=== PATIENT | male | born 1965 | race Caucasian/White ===

== ENCOUNTER → 2017-04-23 | Outpatient (CLI) | payer OTHER ==
[~2017-04-23] VITALS: Ht 170.2 cm; Wt 97.5 kg
[~2017-04-23] MED LIST: MULTCHW13 PO; NS 1,000 ML IV ONE
--- NOTE | 2017-04-23 12:46 | ROOR ---
Patient Name: Garry Grimes Procedure Date: 04/23/2017 12:14 PM Date of : 1965 Age: 51 Room: [facility] Gender: Male Note Status: Finalized Procedure: Total Colonoscopy to Cecum + Biopsy Polypectomy Indications: Screening for colorectal malignant neoplasm Providers: Uri Lopez MD Referring MD: ADRIAN Atwood Requesting Provider: Medicines: Monitored Anesthesia Care Complications: No immediate complications. Procedure: Pre-Anesthesia Assessment: - The heart rate, respiratory rate, oxygen saturations, blood pressure, adequacy of pulmonary ventilation, and response to care were monitored throughout the procedure. The Colonoscope was introduced through the anus and advanced to the cecum, identified by appendiceal orifice and ileocecal valve. The colonoscopy was performed without difficulty. The patient tolerated the procedure well. The quality of the bowel preparation was good. Findings: The perianal and digital rectal examinations were normal. Non-bleeding internal hemorrhoids were found during retroflexion. The hemorrhoids were small and Grade I (internal hemorrhoids that do not prolapse). Multiple small and large-mouthed diverticula were found in the recto-sigmoid colon, sigmoid colon and descending colon. Two sessile polyps were found in the mid ascending colon. The polyps were small in size. These polyps were removed with a jumbo cold forceps. Resection and retrieval were complete. A small polyp was found at 30 cm proximal to the anus. The polyp was sessile. The polyp was removed with a jumbo cold forceps. Resection and retrieval were complete. The exam was otherwise without abnormality on direct and retroflexion views. Impression: - Non-bleeding internal hemorrhoids. - Diverticulosis in the recto-sigmoid colon, in the sigmoid colon and in the descending colon. - Two small polyps in the mid ascending colon, removed with a jumbo cold forceps. Resected and retrieved. - One small polyp at 30 cm proximal to the anus, removed with a jumbo cold forceps. Resected and retrieved. - The examination was otherwise normal on direct and retroflexion views. - The exam was otherwise normal to the cecum. Recommendation: - Patient has a contact number available for emergencies. The signs and symptoms of potential delayed complications were discussed with the patient. Return to normal activities tomorrow. Written discharge instructions were provided to the patient. - High fiber diet. - Discharge patient to home. - Continue present medications. - Await pathology results. - Telephone GI clinic for pathology results in 1 week. - Repeat colonoscopy in 5 years for surveillance based on pathology results. - Return to referring physician. - The findings and recommendations were discussed with the patient's family. Uri Lopez MD Uri Lopez MD 04/23/2017 12:46:21 PM This report has been signed electronically. Number of Addenda: 0 Note Initiated On: 04/23/2017 12:14 PM Estimated Blood Loss: Estimated blood loss: none.
[2017-04-23 13:10] VITALS: BP 121/90
== END ==
LOC: M OPP 11:20
PROVIDERS: ATTEND Internal Medicine Gastroenterology
DX: Z12.11 Encounter for screening for malignant neoplasm of colon (principal); D12.2 Benign neoplasm of ascending colon; K64.0 First degree hemorrhoids; K57.30 Diverticulosis of large intestine without perforation or abscess without bleeding; Z87.891 Personal history of nicotine dependence; Z79.899 Other long term (current) drug therapy; Z88.5 Allergy status to narcotic agent

== ENCOUNTER 2023-01-06 10:35 | Emergency (ER) | payer OTHER ==
[~2023-01-06] VITALS: Ht 170.2 cm; Wt 95.5 kg
[~2023-01-06 10:35] MED LIST changes: -MULTCHW13 PO; +MULTCHW14 PO; -NS 1,000 ML IV ONE
[2023-01-06 11:25] LABS: BASO # 0.1 10^3/uL (0.0-0.2); BASO % 0.6 % (0.0-1.0); EOS # 0.3 10^3/uL (0.0-0.5); EOS % 2.5 % (0.0-3.0); HEMATOCRIT 52.3 % (42.0-52.0); HEMOGLOBIN 17.1 g/dl (13.5-17.5); LYMPH # 3.7 10^3/uL (1.5-5.0); LYMPH % 34.2 % (24.0-44.0); MEAN CORPUSCULAR HEMOGLOBIN 29.9 pg (27.0-33.0); MEAN CORPUSCULAR HGB CONC 32.7 g/dl (32.0-36.5); MEAN CORPUSCULAR VOLUME 91.6 fl (80.0-96.0); MONO # 0.8 10^3/uL (0.0-0.8); MONO % 7.7 % (2.0-8.0); NEUTROPHILS # 5.8 10^3/uL (1.5-8.5); NEUTROPHILS % 54.2 % (36.0-66.0); PLATELET COUNT, AUTOMATED 259 10^3/uL (150-450); RED BLOOD COUNT 5.71 10^6/uL (4.30-6.10); WHITE BLOOD COUNT 10.7 10^3/uL (4.0-10.0)
[2023-01-06] MEDS ORDERED: METOPROLOL 5 MG/5 ML VIAL IV SCH (11:30)
[2023-01-06] MEDS ORDERED: METOPROLOL TART 50 MG TAB PO ONE (11:30)
[2023-01-06 11:38] LABS: INR 0.92; PROTHROMBIN TIME 12.6 SECONDS (12.5-14.5)
[2023-01-06 11:39] LABS: PARTIAL THROMBOPLASTIN TIME 30.1 SECONDS (24.8-34.2)
[2023-01-06 11:54] LABS: CK-MB VALUE MASS 3.8 NG/ML (<3.6); LIPASE 28 U/L (12-53)
[2023-01-06 11:56] LABS: ALBUMIN 3.8 G/DL (3.2-5.2); ALKALINE PHOSPHATASE 61 U/L (46-116); ALT/SGPT 59 U/L (7.0-40); AST/SGOT 31 U/L (<34); BILIRUBIN,DIRECT 0.2 MG/DL (<0.4); BILIRUBIN,TOTAL 0.7 MG/DL (0.3-1.2); BLOOD UREA NITROGEN 30 MG/DL (9-23); CALCIUM LEVEL 11.3 MG/DL (8.5-10.1); CARBON DIOXIDE LEVEL 25 MMOL/L (20-31); CHLORIDE LEVEL 109 MMOL/L (98-107); CREATININE FOR GFR 1.11 MG/DL (0.70-1.30); GLOMERULAR FILTRATION RATE > 60.0 (>56); GLUCOSE, FASTING 112 MG/DL (60-100); SODIUM LEVEL 141 MMOL/L (136-145); TOTAL PROTEIN 6.9 G/DL (5.7-8.2)
[2023-01-06 11:58] LABS: FREE T4 0.78 NG/DL (0.89-1.76)
[2023-01-06 11:59] LABS: THYROID STIMULATING HORMONE 1.551 uIU/ML (0.55-4.78)
[2023-01-06 12:00] VITALS: BP 120/63
[2023-01-06 12:15] LABS: CPK CREATINE PHOSPHOKINASE 144 U/L (46-171); MB/CK RELATIVE INDEX 2.63 (< OR =4)
[2023-01-06 12:58] LABS: CK-MB VALUE MASS 3.5 NG/ML (<3.6)
[2023-01-06 12:59] LABS: MB/CK RELATIVE INDEX 2.82 (< OR =4)
[2023-01-06] MEDS ORDERED: DIGOXIN INJ 0.5 MG/2 ML AMP IV ONE (13:25)
[2023-01-06 16:00] VITALS: BP 115/78
[2023-01-06] MEDS ORDERED: APIXABAN 5 MG TAB (ELIQUIS) PO ONE (17:00)
[2023-01-06] MEDS ORDERED: METO50TA7 PO (17:03)
[2023-01-06] MEDS ORDERED: ELIQ5TAB PO (17:03)
[2023-01-06] MEDS ORDERED: DIGO0.253 PO (17:03)
[2023-01-06] MEDS ORDERED: LISI20TA33 PO (17:08)
[2023-01-06] MEDS ORDERED: LISI10TA22 PO (17:12)
== END 2023-01-06 17:28 | disposition home or self-care (01) ==
LOC: M ED 10:35
DX: I48.91 Unspecified atrial fibrillation (principal); I10 Essential (primary) hypertension; E78.5 Hyperlipidemia, unspecified
CPT/HCPCS: 36415; 71045; 80048; 80076; 82550; 82553; 83690; 84439; 84443; 84484; 85025; 85610; 85730; 93005; 93041; 94760; 99285; J1160

== ENCOUNTER 2024-05-29 10:54 | Inpatient (IN) | payer OTHER ==
[~2024-05-29] VITALS: Ht 170.2 cm; Wt 94.9 kg
[~2024-05-29 10:54] MED LIST changes: +DIGO0.253 PO; +ELIQ5TAB PO; +LISI10TA22 PO; +LISI20TA33 PO; +METO50TA7 PO
[2024-05-29 12:19] LABS: BASO % 0.4 % (0.0-1.0); EOS # 0.3 10^3/uL (0.0-0.5); EOS % 2.7 % (0.0-3.0); HEMATOCRIT 48.1 % (42.0-52.0); HEMOGLOBIN 16.2 g/dl (13.5-17.5); LYMPH # 2.6 10^3/uL (1.5-5.0); LYMPH % 27.2 % (24.0-44.0); MEAN CORPUSCULAR HEMOGLOBIN 31.3 pg (27.0-33.0); MEAN CORPUSCULAR HGB CONC 33.7 g/dl (32.0-36.5); MEAN CORPUSCULAR VOLUME 92.9 fl (80.0-96.0); MONO # 0.9 10^3/uL (0.0-0.8); MONO % 9.4 % (2.0-8.0); NEUTROPHILS # 5.8 10^3/uL (1.5-8.5); NEUTROPHILS % 59.9 % (36.0-66.0); PLATELET COUNT, AUTOMATED 230 10^3/uL (150-450); RED BLOOD COUNT 5.18 10^6/uL (4.30-6.10); WHITE BLOOD COUNT 9.7 10^3/uL (4.0-10.0)
[2024-05-29 12:32] LABS: INR 1.11; PARTIAL THROMBOPLASTIN TIME 33.6 SECONDS (24.8-34.2)
[2024-05-29 12:39] LABS: LIPASE 34 U/L (12-53)
[2024-05-29 12:41] LABS: ALBUMIN 3.9 G/DL (3.2-5.2); ALKALINE PHOSPHATASE 65 U/L (46-116); ALT/SGPT 45 U/L (7.0-40); AMYLASE 29 U/L (30-118); AST/SGOT 18 U/L (<34); BILIRUBIN,DIRECT 0.2 MG/DL (<0.4); BILIRUBIN,TOTAL 0.9 MG/DL (0.3-1.2); BLOOD UREA NITROGEN 24 MG/DL (9-23); CALCIUM LEVEL 11.3 MG/DL (8.5-10.1); CARBON DIOXIDE LEVEL 29 MMOL/L (20-31); CHLORIDE LEVEL 107 MMOL/L (98-107); CREATININE FOR GFR 0.95 MG/DL (0.70-1.30); GLOMERULAR FILTRATION RATE > 60.0 (>56); GLUCOSE, FASTING 127 MG/DL (60-100); POTASSIUM SERUM 5.5 MMOL/L (3.5-5.1); SODIUM LEVEL 138 MMOL/L (136-145); TOTAL PROTEIN 6.9 G/DL (5.7-8.2)
[2024-05-29] MEDS ORDERED: ISOVUE-370 76% 100ML VIAL As Ordered ONE (12:47)
[2024-05-29] MEDS: PIPERACILLIN/TAZOBACTAM SOD 3.375 GM in D5W MINI-BAG PLUS 50 ML IV ONE (14:28)
[2024-05-29] MEDS ORDERED: DIGO0.253 PO (14:43)
[2024-05-29] MEDS ORDERED: AMLO1TAB24 PO (14:43)
[2024-05-29] MEDS ORDERED: METO1TAB7 PO (14:43)
[2024-05-29] MEDS ORDERED: METF-838 PO (14:43)
[2024-05-29] MEDS ORDERED: NITR0.4S14 PO (14:43)
[2024-05-29] MEDS ORDERED: ELIQ5TAB PO (14:43)
[2024-05-29] MEDS ORDERED: ASPI81TA26 PO (14:43)
[2024-05-29] MEDS ORDERED: FEXO-116 PO (14:43)
[2024-05-29] MEDS ORDERED: METO1TAB33 PO (14:43)
[2024-05-29] MEDS ORDERED: HOME MED LIST COMPLETE! XX SCH (14:45)
[2024-05-29] MEDS ORDERED: DEXTROSE 50% 50ML SYRINGE IV PRN (14:50)
[2024-05-29] MEDS ORDERED: GLUCOSE 4 GM CHEW PO PRN (14:50)
[2024-05-29] MEDS ORDERED: METOCLOPRAMIDE INJ 10MG/2ML VIAL IV PRN (14:50)
[2024-05-29] MEDS ORDERED: ACETAMINOPHEN TAB 650MG DOSE (2X325MG) PO PRN (14:50)
[2024-05-29] MEDS ORDERED: metroNIDAZOLE 250 MG in IV 1 EA IV SCH (14:50)
[2024-05-29] MEDS ORDERED: NITROGLYCERIN 0.4MG SUBL TABLET SL SCH (14:50)
[2024-05-29] MEDS ORDERED: GLUCAGON INJ 1MG VIAL SC PRN (14:50)
[2024-05-29] MEDS: D5W/0.9% SODIUM CHLORIDE 1,000 ML IV SCH (15:46)
[2024-05-29] MEDS: CIPROFLOXACIN 400 MG in IV 1 EA IV SCH (15:46)
[2024-05-29 16:06] LABS: CHOLESTEROL LEVEL 198 MG/DL (<200); CHOLESTEROL RISK RATIO 6.09 (<5); DIGOXIN LEVEL 1.3 NG/ML (0.8-2.0); HDL CHOLESTEROL 32.5 MG/DL (>40); LDL CHOLESTEROL 135.3 MG/DL (<100); NON-HDL-C 165.5 MG/DL; TRIGLYCERIDES LEVEL 151 MG/DL (<150)
[2024-05-29 16:08] LABS: FREE T4 0.82 NG/DL (0.89-1.76); THYROID STIMULATING HORMONE 0.859 uIU/ML (0.55-4.78)
[2024-05-29 16:08] LABS: C REACTIVE PROTEIN QUANTITATIV 0.7 MG/DL (<1.0)
[2024-05-29 16:34] LABS: HEMOGLOBIN A1c 6.8 % (4.0-6.0)
[2024-05-29 17:20] VITALS: BP 125/87; TEMP 97.9; O2SAT 98
[2024-05-29] MEDS: metroNIDAZOLE 500 MG in IV 1 EA IV SCH (18:02)
[2024-05-29] MEDS: INSULIN LISPRO (NovoLOG) PER UNIT SC SCH ×2 (18:07→21:00)
[2024-05-29 20:00] VITALS: BP 142/84; TEMP 98.2; O2SAT 98
[2024-05-29 20:20] VITALS: BP 132/78; TEMP 97.3; O2SAT 96
[2024-05-29] MEDS: METOPROLOL SUCC (TopROL XL) 50MG **XL** TAB PO SCH (21:00)
[2024-05-30 06:10] LABS: HEMATOCRIT 46.4 % (42.0-52.0); HEMOGLOBIN 15.8 g/dl (13.5-17.5); MEAN CORPUSCULAR HEMOGLOBIN 31.2 pg (27.0-33.0); MEAN CORPUSCULAR HGB CONC 34.1 g/dl (32.0-36.5); MEAN CORPUSCULAR VOLUME 91.5 fl (80.0-96.0); PLATELET COUNT, AUTOMATED 191 10^3/uL (150-450); RED BLOOD COUNT 5.07 10^6/uL (4.30-6.10); WHITE BLOOD COUNT 7.8 10^3/uL (4.0-10.0)
[2024-05-30 06:33] LABS: ALBUMIN 3.3 G/DL (3.2-5.2); ALKALINE PHOSPHATASE 53 U/L (46-116); ALT/SGPT 35 U/L (7.0-40); AST/SGOT 15 U/L (<34); BILIRUBIN,TOTAL 1.1 MG/DL (0.3-1.2); BLOOD UREA NITROGEN 15 MG/DL (9-23); CALCIUM LEVEL 10.6 MG/DL (8.5-10.1); CARBON DIOXIDE LEVEL 26 MMOL/L (20-31); CHLORIDE LEVEL 109 MMOL/L (98-107); CREATININE FOR GFR 0.87 MG/DL (0.70-1.30); GLOMERULAR FILTRATION RATE > 60.0 (>56); GLUCOSE, FASTING 155 MG/DL (60-100); POTASSIUM SERUM 4.4 MMOL/L (3.5-5.1); SODIUM LEVEL 139 MMOL/L (136-145)
[2024-05-30 08:09] LABS: PTH INTACT 101.4 PG/ML (18.5-88.0)
[2024-05-30] MEDS: METOPROLOL SUCC (TopROL XL) 100MG *XL* TAB PO SCH (09:00)
[2024-05-30] MEDS: amLODIPine 5 MG TAB PO SCH (09:00)
[2024-05-30] MEDS: PANTOPRAZOLE 40MG VIAL IV SCH (09:30)
[2024-05-30] MEDS: ASPIRIN 81MG ENTERIC TABLET PO SCH (09:31)
[2024-05-30] MEDS: DIGOXIN 0.25 MG TAB PO SCH (09:32)
[2024-05-30 12:00] VITALS: BP 106/65; TEMP 97.5; O2SAT 96
[2024-05-30] MEDS: APIXABAN 5 MG TAB (ELIQUIS) PO SCH (13:01)
[2024-05-30 20:06] VITALS: BP 104/70; TEMP 97.7; O2SAT 97
[2024-05-31 04:00] VITALS: BP 120/90; TEMP 97.7; O2SAT 98
[2024-05-31 07:17] LABS: BASO % 0.4 % (0.0-1.0); EOS # 0.2 10^3/uL (0.0-0.5); EOS % 3.4 % (0.0-3.0); HEMOGLOBIN 15.4 g/dl (13.5-17.5); LYMPH % 28.5 % (24.0-44.0); MEAN CORPUSCULAR HEMOGLOBIN 30.7 pg (27.0-33.0); MEAN CORPUSCULAR HGB CONC 33.5 g/dl (32.0-36.5); MEAN CORPUSCULAR VOLUME 91.8 fl (80.0-96.0); MONO # 0.6 10^3/uL (0.0-0.8); MONO % 8.9 % (2.0-8.0); NEUTROPHILS # 4.1 10^3/uL (1.5-8.5); NEUTROPHILS % 58.4 % (36.0-66.0); PLATELET COUNT, AUTOMATED 202 10^3/uL (150-450); RED BLOOD COUNT 5.01 10^6/uL (4.30-6.10); WHITE BLOOD COUNT 7.1 10^3/uL (4.0-10.0)
[2024-05-31 07:45] LABS: BLOOD UREA NITROGEN 13 MG/DL (9-23); CALCIUM LEVEL 10.2 MG/DL (8.5-10.1); CARBON DIOXIDE LEVEL 24 MMOL/L (20-31); CHLORIDE LEVEL 112 MMOL/L (98-107); CREATININE FOR GFR 0.85 MG/DL (0.70-1.30); GLOMERULAR FILTRATION RATE > 60.0 (>56); GLUCOSE, FASTING 136 MG/DL (60-100); SODIUM LEVEL 141 MMOL/L (136-145)
[2024-05-31] MEDS: PANTOPRAZOLE 40MG TAB (PROTONIX) PO SCH (09:17)
[2024-05-31 09:19] VITALS: BP 112/72
[2024-05-31 12:00] VITALS: BP 119/92; TEMP 97.5; O2SAT 97
[2024-05-31] MEDS ORDERED: METR-265 PO (13:50)
[2024-05-31] MEDS ORDERED: CIPR-249 PO (13:50)
== END 2024-05-31 14:16 | disposition home or self-care (01) | DRG 392 ==
LOC: M ED 10:54 → M ED INP 14:49 → M MSPAV 17:20
PROVIDERS: ADMIT Hospitalist; ATTEND Hospitalist
DX: K57.20 Diverticulitis of large intestine with perforation and abscess without bleeding (principal); E66.9 Obesity, unspecified; G47.33 Obstructive sleep apnea (adult) (pediatric); I10 Essential (primary) hypertension; E78.5 Hyperlipidemia, unspecified; E11.9 Type 2 diabetes mellitus without complications; E83.52 Hypercalcemia; K43.9 Ventral hernia without obstruction or gangrene; I48.91 Unspecified atrial fibrillation; I25.10 Atherosclerotic heart disease of native coronary artery without angina pectoris; K59.00 Constipation, unspecified; Z79.01 Long term (current) use of anticoagulants; Z79.82 Long term (current) use of aspirin; Z79.84 Long term (current) use of oral hypoglycemic drugs; Z79.899 Other long term (current) drug therapy; Z88.8 Allergy status to other drugs, medicaments and biological substances

== ENCOUNTER → 2024-06-17 | Outpatient (CLI) | payer OTHER ==
[~2024-06-17] MED LIST changes: +AMLO1TAB24 PO; +ASPI81TA26 PO; +CIPR-249 PO; +FEXO-116 PO; +METF-838 PO; +METO1TAB33 PO; +METO1TAB7 PO; +METR-265 PO; +NITR0.4S14 PO
== END ==
LOC: M RAD 13:27
PROVIDERS: ATTEND Registered Nurse
DX: Z95.1 Presence of aortocoronary bypass graft (principal); J90 Pleural effusion, not elsewhere classified

== ENCOUNTER → 2024-10-08 | Outpatient (CLI) | payer OTHER ==
[~2024-10-08] MED LIST changes: +JARD1TAB PO
== END ==
LOC: M RAD 07:45
PROVIDERS: ATTEND Internal Medicine
DX: Z12.2 Encounter for screening for malignant neoplasm of respiratory organs (principal); J98.4 Other disorders of lung; Z87.891 Personal history of nicotine dependence

== ENCOUNTER 2024-10-14 07:16 | Day surgery (SDC) | payer OTHER ==
[~2024-10-14] VITALS: Ht 170.2 cm; Wt 91.0 kg
[2024-10-14] MEDS ORDERED: propofoL 500 MG/50 ML VIAL As Ordered ONE (08:26)
[2024-10-14] MEDS ORDERED: fentaNYL 100 MCG/2 ML INJECTION As Ordered ONE (08:27)
[2024-10-14] MEDS ORDERED: dexmedeTOMIDine (4MCG/ML)200MCG/50ML BTL (PRECEDEX) As Ordered ONE (08:29)
[2024-10-14 08:48] VITALS: TEMP 97.6
[2024-10-14 09:15] VITALS: BP 94/73; O2SAT 97
== END 2024-10-14 09:32 | disposition home or self-care (01) ==
LOC: M OPP 07:16
PROVIDERS: ATTEND Surgery
DX: K57.32 Diverticulitis of large intestine without perforation or abscess without bleeding (principal); K57.30 Diverticulosis of large intestine without perforation or abscess without bleeding; D12.3 Benign neoplasm of transverse colon; D12.5 Benign neoplasm of sigmoid colon; I48.91 Unspecified atrial fibrillation; I10 Essential (primary) hypertension; E11.9 Type 2 diabetes mellitus without complications; R12 Heartburn; G47.33 Obstructive sleep apnea (adult) (pediatric); Z87.891 Personal history of nicotine dependence; Z88.8 Allergy status to other drugs, medicaments and biological substances; Z79.01 Long term (current) use of anticoagulants; Z79.899 Other long term (current) drug therapy
CPT/HCPCS: 45385; 88305; J3010

== ENCOUNTER 2024-10-21 12:33 | Emergency (ER) | payer OTHER ==
[~2024-10-21] VITALS: Ht 167.6 cm; Wt 90.2 kg
[2024-10-21] MEDS ORDERED: FEXO-116 PO (12:48)
[2024-10-21] MEDS ORDERED: ATOR40TA75 PO (12:48)
[2024-10-21 13:58] LABS: BASO # 0.1 10^3/uL (0.0-0.2); BASO % 0.6 % (0.0-1.0); EOS # 0.4 10^3/uL (0.0-0.5); EOS % 4.6 % (0.0-3.0); HEMATOCRIT 48.4 % (42.0-52.0); HEMOGLOBIN 15.8 g/dl (13.5-17.5); LYMPH # 2.5 10^3/uL (1.5-5.0); LYMPH % 28.4 % (24.0-44.0); MEAN CORPUSCULAR HEMOGLOBIN 29.5 pg (27.0-33.0); MEAN CORPUSCULAR HGB CONC 32.6 g/dl (32.0-36.5); MEAN CORPUSCULAR VOLUME 90.5 fl (80.0-96.0); MONO % 11.7 % (2.0-8.0); NEUTROPHILS # 4.7 10^3/uL (1.5-8.5); NEUTROPHILS % 54.4 % (36.0-66.0); PLATELET COUNT, AUTOMATED 210 10^3/uL (150-450); RED BLOOD COUNT 5.35 10^6/uL (4.30-6.10); WHITE BLOOD COUNT 8.7 10^3/uL (4.0-10.0)
[2024-10-21 14:13] LABS: INR 1.07; PARTIAL THROMBOPLASTIN TIME 29.7 SECONDS (24.8-34.2); PROTHROMBIN TIME 14.2 SECONDS (12.5-14.5)
[2024-10-21 14:21] LABS: ALBUMIN 3.7 G/DL (3.2-5.2); BILIRUBIN,DIRECT 0.2 MG/DL (<0.4); BILIRUBIN,TOTAL 0.7 MG/DL (0.3-1.2); TOTAL PROTEIN 7.3 G/DL (5.7-8.2)
[2024-10-21] MEDS ORDERED: ISOVUE-370 76% 100ML VIAL As Ordered ONE (15:32)
[2024-10-21 18:00] VITALS: O2SAT 99
[2024-10-21 18:08] VITALS: BP 94/70
[2024-10-21 18:09] VITALS: TEMP 97.8
[2024-10-22] MEDS ORDERED: JARD1TAB3 PO (10:27)
== END 2024-10-21 18:12 | disposition home or self-care (01) ==
LOC: M ED 12:33
DX: K62.5 Hemorrhage of anus and rectum (principal); I48.91 Unspecified atrial fibrillation; I10 Essential (primary) hypertension; E78.5 Hyperlipidemia, unspecified; Z88.8 Allergy status to other drugs, medicaments and biological substances; Z79.4 Long term (current) use of insulin; Z79.899 Other long term (current) drug therapy
CPT/HCPCS: 36415; 74174; 80047; 80076; 83690; 85025; 85610; 85730; 86850; 86900; 86901; 99285; Q9967

== ENCOUNTER 2024-10-22 06:54 | Observation (INO) | payer OTHER ==
[~2024-10-22] VITALS: Ht 182.9 cm; Wt 90.0 kg
[2024-10-22] VITALS (8 sets, daily range): BP systolic 100–119; BP diastolic 59–74; TEMP 98.1–99.3; O2SAT 97–100
[~2024-10-22 06:54] MED LIST changes: +ATOR40TA75 PO
[2024-10-22] MEDS: NS (Normal Saline) 0.9% 1,000 ML IV ONE ×2 (07:49→09:57)
[2024-10-22] MEDS: FLEET OIL RETENTION ENEMA PR ONE (07:55)
[2024-10-22 07:57] LABS: BASO % 0.5 % (0.0-1.0); EOS # 0.1 10^3/uL (0.0-0.5); EOS % 1.3 % (0.0-3.0); HEMOGLOBIN 14.2 g/dl (13.5-17.5); LYMPH # 1.7 10^3/uL (1.5-5.0); LYMPH % 19.6 % (24.0-44.0); MEAN CORPUSCULAR HEMOGLOBIN 29.3 pg (27.0-33.0); MEAN CORPUSCULAR HGB CONC 32.3 g/dl (32.0-36.5); MEAN CORPUSCULAR VOLUME 90.7 fl (80.0-96.0); MONO # 0.9 10^3/uL (0.0-0.8); MONO % 10.6 % (2.0-8.0); NEUTROPHILS # 5.9 10^3/uL (1.5-8.5); NEUTROPHILS % 67.5 % (36.0-66.0); PLATELET COUNT, AUTOMATED 187 10^3/uL (150-450); RED BLOOD COUNT 4.85 10^6/uL (4.30-6.10); WHITE BLOOD COUNT 8.7 10^3/uL (4.0-10.0)
[2024-10-22 08:13] LABS: INR 1.07; PARTIAL THROMBOPLASTIN TIME 27.6 SECONDS (24.8-34.2); PROTHROMBIN TIME 14.2 SECONDS (12.5-14.5)
[2024-10-22 08:17] LABS: CK-MB VALUE MASS 1.4 NG/ML (<3.6); LIPASE 26 U/L (12-53)
[2024-10-22 08:19] LABS: AMYLASE 27 U/L (30-118); DIGOXIN LEVEL 1.9 NG/ML (0.8-2.0)
[2024-10-22 08:29] LABS: ALBUMIN 3.4 G/DL (3.2-5.2); ALKALINE PHOSPHATASE 82 U/L (40-129); ALT/SGPT 51 U/L (7.0-40); AST/SGOT 21 U/L (<34); BILIRUBIN,DIRECT 0.4 MG/DL (<0.4); BILIRUBIN,TOTAL 1.3 MG/DL (0.3-1.2); BLOOD UREA NITROGEN 29 MG/DL (9-23); CALCIUM LEVEL 11.5 MG/DL (8.5-10.1); CARBON DIOXIDE LEVEL 25 MMOL/L (20-31); CHLORIDE LEVEL 105 MMOL/L (98-107); CPK CREATINE PHOSPHOKINASE 60 U/L (46-171); CREATININE FOR GFR 1.04 MG/DL (0.70-1.30); GLOMERULAR FILTRATION RATE > 60.0 (>56); GLUCOSE, FASTING 219 MG/DL (60-100); MB/CK RELATIVE INDEX 2.33 (< OR =4); POTASSIUM SERUM 5.4 MMOL/L (3.5-5.1); SODIUM LEVEL 138 MMOL/L (136-145); TOTAL PROTEIN 6.4 G/DL (5.7-8.2)
[2024-10-22 09:04] LABS: CK-MB VALUE MASS 1.2 NG/ML (<3.6); MB/CK RELATIVE INDEX 2.22 (< OR =4)
[2024-10-22] MEDS: MAGNESIUM CITRATE 300ML BTL PO ONE (09:58)
[2024-10-22] MEDS ORDERED: JARD1TAB3 PO (10:27)
[2024-10-22] MEDS ORDERED: HOME MED LIST COMPLETE! XX SCH (10:35)
[2024-10-22] MEDS ORDERED: propofoL 200 MG/20 ML VIAL As Ordered ONE (13:56)
[2024-10-22] MEDS ORDERED: NS (Normal Saline) 0.9% 1,000 ML IV SCH (16:00)
[2024-10-22 16:01] LABS: BASO % 0.3 % (0.0-1.0); EOS # 0.1 10^3/uL (0.0-0.5); EOS % 0.6 % (0.0-3.0); HEMATOCRIT 43.8 % (42.0-52.0); HEMOGLOBIN 14.3 g/dl (13.5-17.5); LYMPH # 1.6 10^3/uL (1.5-5.0); LYMPH % 16.8 % (24.0-44.0); MEAN CORPUSCULAR HEMOGLOBIN 29.9 pg (27.0-33.0); MEAN CORPUSCULAR HGB CONC 32.6 g/dl (32.0-36.5); MEAN CORPUSCULAR VOLUME 91.6 fl (80.0-96.0); MONO # 1.2 10^3/uL (0.0-0.8); MONO % 13.1 % (2.0-8.0); NEUTROPHILS # 6.4 10^3/uL (1.5-8.5); NEUTROPHILS % 68.8 % (36.0-66.0); PLATELET COUNT, AUTOMATED 183 10^3/uL (150-450); RED BLOOD COUNT 4.78 10^6/uL (4.30-6.10); WHITE BLOOD COUNT 9.3 10^3/uL (4.0-10.0)
[2024-10-22 16:24] LABS: ALBUMIN 3.3 G/DL (3.2-5.2); ALKALINE PHOSPHATASE 82 U/L (40-129); ALT/SGPT 47 U/L (7.0-40); AST/SGOT 19 U/L (<34); BILIRUBIN,TOTAL 0.9 MG/DL (0.3-1.2); BLOOD UREA NITROGEN 24 MG/DL (9-23); CALCIUM LEVEL 11.1 MG/DL (8.5-10.1); CARBON DIOXIDE LEVEL 27 MMOL/L (20-31); CHLORIDE LEVEL 105 MMOL/L (98-107); CREATININE FOR GFR 0.96 MG/DL (0.70-1.30); GLOMERULAR FILTRATION RATE > 60.0 (>56); GLUCOSE, FASTING 114 MG/DL (60-100); POTASSIUM SERUM 4.6 MMOL/L (3.5-5.1); SODIUM LEVEL 140 MMOL/L (136-145); TOTAL PROTEIN 6.6 G/DL (5.7-8.2)
[2024-10-22] MEDS: ATORVASTATIN 20 MG TAB PO SCH (21:02)
[2024-10-23] VITALS: BP 101/67; TEMP 99.3; O2SAT 96
[2024-10-23 05:00] VITALS: BP 124/71; TEMP 99; O2SAT 96
[2024-10-23 06:59] LABS: HEMATOCRIT 40.6 % (42.0-52.0); HEMOGLOBIN 13.5 g/dl (13.5-17.5); MEAN CORPUSCULAR HEMOGLOBIN 29.8 pg (27.0-33.0); MEAN CORPUSCULAR HGB CONC 33.3 g/dl (32.0-36.5); MEAN CORPUSCULAR VOLUME 89.6 fl (80.0-96.0); PLATELET COUNT, AUTOMATED 175 10^3/uL (150-450); RED BLOOD COUNT 4.53 10^6/uL (4.30-6.10); WHITE BLOOD COUNT 7.2 10^3/uL (4.0-10.0)
[2024-10-23 07:31] LABS: ALKALINE PHOSPHATASE 75 U/L (40-129); ALT/SGPT 38 U/L (7.0-40); AST/SGOT 18 U/L (<34); BILIRUBIN,TOTAL 0.8 MG/DL (0.3-1.2); BLOOD UREA NITROGEN 19 MG/DL (9-23); CALCIUM LEVEL 10.7 MG/DL (8.5-10.1); CARBON DIOXIDE LEVEL 24 MMOL/L (20-31); CHLORIDE LEVEL 106 MMOL/L (98-107); GLOMERULAR FILTRATION RATE > 60.0 (>56); GLUCOSE, FASTING 102 MG/DL (60-100); POTASSIUM SERUM 4.1 MMOL/L (3.5-5.1); SODIUM LEVEL 139 MMOL/L (136-145); TOTAL PROTEIN 6.2 G/DL (5.7-8.2)
[2024-10-23 08:00] VITALS: BP 114/77; TEMP 97.5; O2SAT 97
[2024-10-23] MEDS: METOPROLOL SUCC (TopROL XL) 100MG *XL* TAB PO SCH (09:00)
[2024-10-23] MEDS: DIGOXIN 0.25 MG TAB PO SCH (09:54)
[2024-10-23 12:00] VITALS: BP 112/74; TEMP 96.9; O2SAT 99
[2024-10-23] MEDS ORDERED: METOPROLOL SUCC (TopROL XL) 50MG **XL** TAB PO SCH (21:00)
[2024-10-23] MEDS ORDERED: amLODIPine 5 MG TAB PO SCH (21:00)
== END 2024-10-23 14:01 | disposition home or self-care (01) ==
LOC: M ED 06:54 → M ED INP 11:48 → M PCU 14:25
PROVIDERS: ADMIT Student in an Organized Health Care Education/Training Program; ATTEND Student in an Organized Health Care Education/Training Program
DX: K92.2 Gastrointestinal hemorrhage, unspecified (principal); I95.9 Hypotension, unspecified; K92.1 Melena; E86.0 Dehydration; R42 Dizziness and giddiness; E11.9 Type 2 diabetes mellitus without complications; I48.91 Unspecified atrial fibrillation; I25.10 Atherosclerotic heart disease of native coronary artery without angina pectoris; Z95.1 Presence of aortocoronary bypass graft; E78.5 Hyperlipidemia, unspecified; G47.33 Obstructive sleep apnea (adult) (pediatric); I10 Essential (primary) hypertension; J45.909 Unspecified asthma, uncomplicated; E66.811 Obesity, class 1; Z86.0100 Personal history of colon polyps, unspecified; Z79.899 Other long term (current) drug therapy; Z79.01 Long term (current) use of anticoagulants; Z79.82 Long term (current) use of aspirin; Z88.8 Allergy status to other drugs, medicaments and biological substances

== ENCOUNTER 2025-06-20 09:09 | Day surgery (SDC) | payer OTHER ==
[~2025-06-20] VITALS: Ht 170.2 cm; Wt 85.7 kg
[~2025-06-20 09:09] MED LIST changes: -FEXO-116 PO; +FEXO-189 PO; +JARD1TAB3 PO; +LOKE10PA PO; +METF500T13 PO; +SENN8.6T28 PO; +TAMS-18 PO
[2025-06-20] MEDS ORDERED: LIDOCAINE 2% 100 MG/5 ML SDV (FOR ANES.) As Ordered ONE (09:34)
[2025-06-20] MEDS ORDERED: ONDANSETRON 4MG 2ML VIAL As Ordered ONE (09:35)
[2025-06-20] MEDS ORDERED: dexAMETHasone 4 MG/ML 1 ML VIAL As Ordered ONE (09:35)
[2025-06-20] MEDS ORDERED: MIDAZOLAM INJ 2 MG/2 ML VIAL As Ordered ONE (09:36)
[2025-06-20] MEDS: LR 1,000 ML IV SCH (10:07)
[2025-06-20] MEDS: ceFAZolin SODIUM 2 GM in DEXTROSE 5% (D5W) ADV/MINI-BAG 50 ML IV ONE (11:18)
[2025-06-20] MEDS ORDERED: ACETAMINOPHEN 1000MG/100ML IV BAG As Ordered ONE (11:19)
[2025-06-20] MEDS ORDERED: KETOROLAC 30 MG/ML 1 ML VIAL As Ordered ONE (11:38)
[2025-06-20] MEDS ORDERED: PHENYLephrine 500MCG 5ML (100MCG/ML) SYRINGE As Ordered ONE (12:01)
[2025-06-20] MEDS ORDERED: HYDROMORPHONE HCL 0.5 MG/0.5 ML SYRINGE IV PRN (12:15)
[2025-06-20] MEDS ORDERED: ONDANSETRON 4MG 2ML VIAL IV PRN (12:15)
[2025-06-20] MEDS ORDERED: LR 1,000 ML IV SCH (12:15)
[2025-06-20 13:00] VITALS: BP 138/88; TEMP 96.7; O2SAT 98
== END 2025-06-20 13:30 | disposition home or self-care (01) ==
LOC: M SDC 09:09
PROVIDERS: ATTEND Orthopaedic Surgery Hand Surgery
DX: G56.01 Carpal tunnel syndrome, right upper limb (principal); E11.9 Type 2 diabetes mellitus without complications; I25.10 Atherosclerotic heart disease of native coronary artery without angina pectoris; I48.91 Unspecified atrial fibrillation; I10 Essential (primary) hypertension; E78.00 Pure hypercholesterolemia, unspecified; G47.30 Sleep apnea, unspecified; N40.1 Benign prostatic hyperplasia with lower urinary tract symptoms; R39.12 Poor urinary stream; Z95.1 Presence of aortocoronary bypass graft; Z79.82 Long term (current) use of aspirin; Z79.899 Other long term (current) drug therapy; Z79.01 Long term (current) use of anticoagulants; Z79.84 Long term (current) use of oral hypoglycemic drugs; Z86.718 Personal history of other venous thrombosis and embolism; Z88.8 Allergy status to other drugs, medicaments and biological substances; Z87.891 Personal history of nicotine dependence
CPT/HCPCS: 64721; C1762; J0131; J0665; J0690; J1100; J1885; J2250; J2371; J2405; J3010